=== PATIENT | female | born 1950 | race Caucasian/White ===

== ENCOUNTER 2017-09-15 07:45 | Day surgery (SDC) | payer OTHER, BC ==
[2017-09-15] MEDS ORDERED: NS 500 ML IV 500 ML IV ONE (08:01)
[2017-09-15] MEDS ORDERED: VERSED ONE (08:03)
[2017-09-15] MEDS ORDERED: TETRACAINE 0.5% OPHTH 1 DOSE AFFEYE ONE ×5 (10:20→10:52)
[2017-09-15] MEDS ORDERED: VERSED IVP ONE ×2 (10:36)
[2017-09-15] MEDS ORDERED: BETADINE OPHTH SOLN 5% EACHEYE ONE (10:52)
[2017-09-15] MEDS ORDERED: VIGAMOX 0.5% OPHTH 1 DOSE AFFEYE ONE ×2 (11:03→11:18)
[2017-09-15] MEDS ORDERED: DUOVISC IO ONE (11:07)
[2017-09-15] MEDS ORDERED: XYLOCAINE-MPF 1% IJ ONE (11:07)
[2017-09-15] MEDS ORDERED: ADRENALINE CHL INJ IJ ONE (11:07)
[2017-09-15] MEDS ORDERED: BSS OPHTH (PLAIN) 500 ML with VANCOMYCIN HCL 500 MG VIAL 25 MG, ADRENALINE CHL INJ 1 MG IR ONE ×3 (11:07)
--- NOTE | 2017-09-15 11:37 | RAD ---
Examination: Right hand, three views History: Injury to 5th finger Findings: There is no obvious fracture or dislocation. There is marked narrowing and osteophyte forma tion at the DIP joint. A faint linear defect is suggested in the proximal phalanx. No dislocation or soft tissue abnormality is noted. Impression: No definite fracture or deformity. DIP joint osteoarthritis. Follow-up suggested to evalu ate proximal phalanx for occult fracture if symptoms persist. Reported By:
[2017-09-15 13:02] VITALS: BP 119/72
== END 2017-09-15 11:45 | disposition home or self-care (01) ==
LOC: SURG1 07:45
PROVIDERS: ATTEND Ophthalmology
PROC: 08DK3ZZ Extraction of Left Lens, Percutaneous Approach (ICD-10-PCS; principal; 2017-09-15 10:30)
PROC: 08RK3JZ Replacement of Left Lens with Synthetic Substitute, Percutaneous Approach (ICD-10-PCS; principal; 2017-09-15 10:30)
DX: H25.12 Age-related nuclear cataract, left eye (principal); H25.012 Cortical age-related cataract, left eye; H52.222 Regular astigmatism, left eye
CPT/HCPCS: 73130; A4217; J0170; J2250; J3370

== ENCOUNTER 2017-10-13 06:48 | Day surgery (SDC) | payer OTHER, BC ==
[2017-10-13] MEDS ORDERED: NS 500 ML IV 500 ML IV ONE (07:07)
[2017-10-13] MEDS ORDERED: TETRACAINE 0.5% OPHTH 1 DOSE AFFEYE ONE ×4 (07:15→09:08)
[2017-10-13] MEDS ORDERED: VIGAMOX 0.5% OPHTH 1 DOSE AFFEYE ONE ×4 (07:17→09:34)
[2017-10-13] MEDS ORDERED: PROLENSA OPHTH 1 DOSE AFFEYE ONE (07:29)
[2017-10-13] MEDS ORDERED: ALPHAGAN-P OPHTH 1 DOSE AFFEYE ONE (07:31)
[2017-10-13] MEDS ORDERED: CYCLOGYL 1% OPHTH 1 DOSE OP ONE ×7 (07:34→07:44)
[2017-10-13] MEDS ORDERED: MYDRIACIL OPHTH 1 DOSE AFFEYE ONE ×7 (07:34→07:44)
[2017-10-13] MEDS ORDERED: AK-DILATE 2.5% OPHTH 1 DOSE OP ONE ×7 (07:34→07:44)
[2017-10-13] MEDS ORDERED: VERSED ONE (07:37)
[2017-10-13] MEDS ORDERED: FENTANYL INJ 100 mcg ONE (07:38)
[2017-10-13] MEDS ORDERED: VERSED IVP ONE (09:06)
[2017-10-13] MEDS ORDERED: AK-DILATE 10% OPHTH 1 DOSE AFFEYE ONE ×2 (09:11)
[2017-10-13] MEDS ORDERED: BETADINE OPHTH SOLN 5% EACHEYE ONE (09:16)
[2017-10-13] MEDS ORDERED: DUOVISC IO ONE (09:23)
[2017-10-13] MEDS ORDERED: BSS OPHTH (PLAIN) 500 ML with VANCOMYCIN HCL 500 MG VIAL 25 MG, ADRENALINE CHL INJ 1 MG IR ONE ×3 (09:23)
[2017-10-13] MEDS ORDERED: ADRENALINE CHL INJ IJ ONE (09:23)
[2017-10-13] MEDS ORDERED: XYLOCAINE-MPF 1% IJ ONE (09:23)
[2017-10-13 09:54] VITALS: BP 116/64
== END 2017-10-13 09:55 | disposition home or self-care (01) ==
LOC: SURG1 06:48
PROVIDERS: ATTEND Ophthalmology
PROC: 08RJ3JZ Replacement of Right Lens with Synthetic Substitute, Percutaneous Approach (ICD-10-PCS; principal; 2017-10-13 07:30)
PROC: 08DJ3ZZ Extraction of Right Lens, Percutaneous Approach (ICD-10-PCS; principal; 2017-10-13 07:30)
DX: H25.11 Age-related nuclear cataract, right eye (principal); H25.011 Cortical age-related cataract, right eye; H52.221 Regular astigmatism, right eye
CPT/HCPCS: A4217; J0170; J2250; J3010; J3370